=== PATIENT | male | born 1985 | race Caucasian/White ===

== ENCOUNTER 2021-01-24 10:55 | Outpatient (CLI) | payer BC, SELFPAY ==
[2021-01-24 11:41] LABS: Volume Semen 0.7 mL (2-5)
[2021-01-24 11:45] LABS: Viscosity Semen High Viscosity
[2021-01-24 11:46] LABS: Epithelial Count Semen 0-4 /hpf; Pathology Referral Yes; Red Blood Count Semen 0-4 /hpf; Sperm Immotility 75 % (50-60); Sperm Non-Progressive Motility 5 % (5-10); Sperm Progressive Motility 20 % (31-34); White Blood Count Semen 15-25 /hpf
[2021-01-24 12:30] LABS: Side 1 16; Side 2 18
[2021-01-24 13:44] LABS: Sperm Vitality-% Live Sperm 64 %
== END 2021-01-24 10:56 | disposition home or self-care (01) ==
LOC: LAB 10:57
PROVIDERS: PCP Nurse Practitioner Family; Visit Provider Nurse Practitioner Women's Health
DX: N46.9 Male infertility, unspecified (principal)
CPT/HCPCS: 80500; 89320

== ENCOUNTER 2021-08-18 10:55 | Outpatient (CLI) | payer BC, SELFPAY ==
[2021-08-18 11:38] LABS: Viscosity Semen High Viscosity
[2021-08-18 11:41] LABS: Sperm Immotility 40 % (50-60)
[2021-08-18 11:42] LABS: Sperm Non-Progressive Motility 10 % (5-10); Sperm Progressive Motility 50 % (31-34)
[2021-08-18 11:44] LABS: Epithelial Count Semen 0-4 /hpf
[2021-08-18 13:02] LABS: PH Semen 8.5 (7.0-8.0)
== END 2021-08-18 10:56 | disposition home or self-care (01) ==
LOC: LAB 10:59
PROVIDERS: PCP Nurse Practitioner Family; Visit Provider Obstetrics & Gynecology
DX: N46.9 Male infertility, unspecified (principal)
CPT/HCPCS: 80500; 89320